=== PATIENT | female | born 1990 | race Two or more races ===

== ENCOUNTER 2019-06-04 09:18 | Emergency (ER) | payer SELFPAY ==
--- NOTE | 2019-06-04 09:42 | ER Document Report ---
Addendum entered and electronically signed by MADDI MCMAHAN FNP 06/04/19 09:44: ED Medical Screen (RME) - General Chief Complaint: Vag Bleeding, +preg <12wks Stated Complaint: VAGINAL BLEEDING/ Time Seen by Provider: 06/04/19 09:32 Notes: Offered the patient some Tylenol, but she said that she was okay at this time and if she would like some later, she would ask for some. TRAVEL OUTSIDE OF THE [place] IN LAST 30 DAYS: No - Related Data Allergies/Adverse Reactions: No Known Allergies Allergy (Verified 06/04/19 09:23) Original Note: ED Medical Screen (RME) - General Chief Complaint: Vag Bleeding, +preg <12wks Stated Complaint: VAGINAL BLEEDING/ Time Seen by Provider: 06/04/19 09:32 Notes: Patient is a 28-year-old female G4, P2, miscarriage 1, who presents to the emergency department with a chief complaint of vaginal bleeding. Patient states that she is about 6 weeks . Her bleeding started last night. She has not seek care at this time. She states that she has some lower abdominal pain also. She is Irish-speaking and family was at bedside to translate. Exam: Mildly tender lower abdomen. I have greeted and performed a rapid initial assessment of this patient. A comprehensive ED assessment and evaluation of the patient, analysis of test results and completion of medical decision making process will be conducted by an additional ED providers. TRAVEL OUTSIDE OF THE [place] IN LAST 30 DAYS: No - Related Data Allergies/Adverse Reactions: No Known Allergies Allergy (Verified 06/04/19 09:23) Past Medical History - General Last Menstrual Period: 04/22/19 - Social History Frequency of alcohol use: None Drug Abuse: None Renal/ Medical History: Denies: Hx Peritoneal Dialysis Physical Exam - Vital signs Vitals: Temp Pulse Resp BP Pulse Ox 98 F 76 20 131/85 H 100 06/04/19 09:24 06/04/19 09:24 06/04/19 09:24 06/04/19 09:24 06/04/19 09:24 Course - Vital Signs Vital signs: Temp Pulse Resp BP Pulse Ox 98 F 76 20 131/85 H 100 06/04/19 09:24 06/04/19 09:24 06/04/19 09:24 06/04/19 09:24 06/04/19 09:24
[2019-06-04 10:06] LABS: APPEARANCE,URINE CLOUDY; BILIRUBIN,URINE NEGATIVE (NEGATIVE); COLOR,URINE YELLOW; GLUCOSE, URINE NEGATIVE (NEGATIVE); KETONES,URINE NEGATIVE (NEGATIVE); LEUKOCYTE ESTERASE,URINE TRACE (NEGATIVE); NITRITE,URINE NEGATIVE (NEGATIVE); PROTEIN,URINE 30 mg/dL (NEGATIVE); URINE SPECIFIC GRAVITY 1.024; UROBILINOGEN,URINE NEGATIVE mg/dL (<2.0)
[2019-06-04 10:11] LABS: ABSOLUTE EOSINOPHILS # (AUTO) 0.1 10^3/uL (0.0-0.6); ABSOLUTE MONOCYTES (AUTO) 0.5 10^3/uL (0.1-1.4); HEMATOCRIT 40.8 % (36.0-47.0); LYMPHOCYTES % (AUTO) 28.8 % (13-45); MEAN CORPUSCULAR HEMOGLOBIN 30.6 pg (27.0-33.4); MEAN CORPUSCULAR HGB CONC 34.3 g/dL (32.0-36.0); MEAN CORPUSCULAR VOLUME 89 fl (80-97); RED BLOOD COUNT 4.57 10^6/uL (3.72-5.28); TOTAL CELLS COUNTED % (AUTO) 100 %
[2019-06-04 10:21] LABS: ABSOLUTE LYMPHOCYTES (AUTO) 1.7 10^3/uL (0.5-4.7); ABSOLUTE NEUT (AUTO) 3.6 10^3/uL (1.7-8.2); BASOPHILS % (AUTO) 0.3 % (0-2); EOSINOPHILS % (AUTO) 1.3 % (0-6); PLATELET COUNT 247 10^3/uL (150-450); RED CELL DISTRIBUTION WIDTH 12.9 % (11.5-14.0); SEGMENTED NEUTROPHILS % (AUTO) 61.6 % (42-78); WHITE BLOOD COUNT 5.9 10^3/uL (4.0-10.5)
[2019-06-04 10:29] LABS: ALBUMIN 4.6 g/dL (3.5-5.0); ALKALINE PHOSPHATASE 62 U/L (38-126); ANION GAP 10 (5-19); ASPARTATE AMINO TRANSFERASE 14 U/L (14-36); BILIRUBIN,DIRECT 0.1 mg/dL (0.0-0.4); BILIRUBIN,TOTAL 0.5 mg/dL (0.2-1.3); BLOOD UREA NITROGEN 12 mg/dL (7-20); CALCIUM 9.8 mg/dL (8.4-10.2); CARBON DIOXIDE 24 mmol/L (22-30); CHLORIDE 108 mmol/L (98-107); GLUCOSE 91 mg/dL (75-110); POTASSIUM 4.1 mmol/L (3.6-5.0); TOTAL PROTEIN 7.5 g/dL (6.3-8.2)
--- NOTE | 2019-06-04 10:32 | RADIOLOGY REPORT (SQ) ---
EXAM DESCRIPTION: U/S OB TRANSVAGINAL W/O DOP COMPLETED DATE/TIME: 06/04/2019 10:23 am REASON FOR STUDY: vaginal bleeding COMPARISON: None. TECHNIQUE: Transvaginal static and realtime grayscale images acquired of the pelvis. Additional richmond cted spectral and color Doppler images recorded. All images stored on PACs. CLINICAL AGE: 6 weeks BHCG: Not available. LIMITATIONS: None. FINDINGS: UTERUS: No visualized intrauterine . 2.3 cm left fundal fibroid. RIGHT ADNEXA: Normal ovary with normal vascular flow. No adnexal free fluid. No adnexal masses. LEFT ADNEXA: Ovary not identified due to poor acoustical window. No adnexal free fluid. No adnexal masses. FREE FLUID: None. OTHER: No other significant finding. IMPRESSION: NO VISUALIZED INTRA- OR EXTRAUTERINE . Nonvisualized left ovary. ECTOPIC CANNOT BE EXCLUDED. FOLLOW-UP ULTRASOUND AND SERIAL BHCG LEVELS STRONGLY RECOMMENDED TO ACCURATELY ASSESS STATU S. TECHNICAL DOCUMENTATION: JOB ID: [id number] [id number] 2010 [employer]- All Rights Reserved Reading location - IP/workstation name: Go [employer]
--- NOTE | 2019-06-04 12:25 | ER Document Report ---
ED General - General Chief Complaint: Vag Bleeding, +preg <12wks Stated Complaint: VAGINAL BLEEDING/ Time Seen by Provider: 06/04/19 09:32 TRAVEL OUTSIDE OF THE [place] IN LAST 30 DAYS: No - HPI Notes: Patient is a 28-year-old female, at approximately 6 weeks gestation, who presents to the emergency department for evaluation of lower abdominal cramping as well as vaginal bleeding. Her last menstrual period was April 20. She states she did have a scant amount of bleeding about 2-1/2 weeks ago. She started having heavier bleeding, bright red and dark brown, yesterday. She is used 3 menstrual pads since onset. She has some cramping pain in her lower abdomen. She denies any fevers or chills. No nausea or vomiting. She is unsure of her blood type. - Related Data Allergies/Adverse Reactions: No Known Allergies Allergy (Verified 06/04/19 09:23) Home Medications: vitamin Past Medical History - General Information source: Patient Last Menstrual Period: 04/22/19 - Social History Smoking Status: Never Smoker Frequency of alcohol use: None Drug Abuse: None Family History: Reviewed & Not Pertinent Patient has suicidal ideation: No Patient has homicidal ideation: No - Medical History Medical History: Negative Renal/ Medical History: Denies: Hx Peritoneal Dialysis Review of Systems - Review of Systems Constitutional: No symptoms reported EENT: No symptoms reported Cardiovascular: No symptoms reported Respiratory: No symptoms reported Gastrointestinal: No symptoms reported Genitourinary: No symptoms reported Female Genitourinary: See HPI Musculoskeletal: No symptoms reported Skin: No symptoms reported Neurological/Psychological: No symptoms reported Physical Exam - Vital signs Vitals: Temp Pulse Resp BP Pulse Ox 98 F 76 20 131/85 H 100 06/04/19 09:24 06/04/19 09:24 06/04/19 09:24 06/04/19 09:24 06/04/19 09:24 - Notes Notes: Vital signs reviewed, please refer to chart. Head is normocephalic, atraumatic. Pupils equal round, reactive to light. Neck is supple without meningismus. Heart is regular rate and rhythm. Lungs are clear to auscultation bilaterally. Abdomen is soft, mild suprapubic tenderness without rebound or guarding, normoa ctive bowel sounds throughout. Extremities without cyanosis, clubbing. Posterior calves are nontender. Peripheral pulses are equal. Skin is warm and dry. Patient is awake, alert, neurological exam is nonfocal. Course - Re-evaluation Re-evalutation: 06/04/19 12:23 Patient presents to the emergency department for evaluation. She had initial laboratory investigations as ordered through triage. Quantitative beta is very low, particularly for a 6-week . It certainly is possible that the patient's bleeding a few weeks ago was in fact a small period, and she is just much earlier in gestation than she believed. There is also the possibility that the patient is experiencing a spontaneous . Findings were explained to the patient in great detail. The need for follow-up ultrasounds as well as serial quantitative beta-hCG was explained. The patient voiced understanding. We will give her a lab slip to have this lab drawn in 48 hours. 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 She is given instructions on pelvic rest. She is to return to the ED with worsening or new concerning symptoms of any sort. - Vital Signs Vital signs: Temp Pulse Resp BP Pulse Ox 98 F 76 20 131/85 H 100 06/04/19 09:24 06/04/19 09:24 06/04/19 09:24 06/04/19 09:24 06/04/19 09:24 - Laboratory Result Diagrams: 06/04/19 09:52 06/04/19 09:52 Laboratory results interpreted by me: 06/04/19 06/04/19 06/04/19 09:30 09:52 09:52 Chloride 108 H Serum HCG, Qual POSITIVE H Beta HCG, Quant 128.38 H Urine Protein 30 H Urine Blood LARGE H Ur Leukocyte Esterase TRACE H - Diagnostic Test Radiology reviewed: Reports reviewed Radiology results interpreted by me: 06/04/19 12:24 Obstetrics Ultrasound 06/04/19 09:39 IMPRESSION: NO VISUALIZED INTRA- OR EXTRAUTERINE . Nonvisualized left ovary. ECTOPIC CANNOT BE EXCLUDED. FOLLOW-UP ULTRASOUND AND SERIAL BHCG LEVELS STRONGLY RECOMMENDED TO ACCURATELY ASSESS STATUS. Discharge - Discharge Clinical Impression: Threatened in first trimester Condition: Stable Disposition: HOME, SELF-CARE Instructions: Bleeding During Early ([facility]), Threatened Miscarriage ([facility]) Additional Instructions: It is unclear at this time as to whether you are very early in your , or potentially having a miscarriage. Pelvic rest as discussed. Have labs r edrawn on Thursday. Follow-up with our on-call [facility], listed below. Return to the emergency department with worsening or new concerning symptoms of any sort. Forms: Follow-Up Laboratory Testing Referrals: JOEL QUESADA MD [[facility]] - Follow up as needed
[2019-06-04 12:43] VITALS: BP 137/88
== END 2019-06-04 12:43 | disposition home or self-care (01) ==
LOC: ER 09:18
DX: O20.0 Threatened abortion (principal); R10.30 Lower abdominal pain, unspecified; Z3A.01 Less than 8 weeks gestation of pregnancy
CPT/HCPCS: 36415; 76817; 80053; 81001; 84702; 84703; 85025; 86900; 86901; 99284

== ENCOUNTER → 2019-06-06 | Outpatient (CLI) | payer SELFPAY | LOC: LAB 09:37 | PROVIDERS: ATTEND Emergency Medicine | DX: O46.91 Antepartum hemorrhage, unspecified, first trimester (principal) | CPT/HCPCS: 36415; 84702 ==